=== PATIENT | male | born 1945 | race Caucasian/White ===

== ENCOUNTER 2016-05-28 23:27 | Emergency (ER) | payer BC, OTHER ==
[~2016-05-28] VITALS: Ht 165.1 cm; Wt 79.4 kg
[2016-05-28 23:43] VITALS: BP 105/57; PULSE 76; RESP 18; TEMP 97.5; O2SAT 98
--- NOTE | 2016-05-28 23:43 | NUR ---
Patient placed in waiting room, vital signs stable, EKG complete and given to MD. Md cleared patient to wait in waiting room. No acute distress noted. Daughter with patient. Will continue to monitor.
--- NOTE | 2016-05-29 00:45 | NUR ---
Patient verbalizing that he wants to leave and go home. Patient and daughter educated and advised on danger of leaving without a medical screeing exam by MD. MD aware, Left without being seen reported to charge nurse.
--- NOTE | 2016-05-29 00:55 | NUR ---
Patient name called for re-assessment. No answer.
--- NOTE | 2016-05-29 01:00 | NUR ---
Patient unable to be found in waiting room or waiting room bathroom. Unable to re-assess patient, patient left without being seen.
== END 2016-05-29 01:00 | disposition left against medical advice (07) ==
LOC: SED 23:27
DX: R07.9 Chest pain, unspecified (principal); Z53.21 Procedure and treatment not carried out due to patient leaving prior to being seen by health care provider
CPT/HCPCS: 93005

== ENCOUNTER 2016-11-18 15:19 | Emergency (ER) | payer BC ==
[~2016-11-18] VITALS: Ht 175.3 cm; Wt 81.6 kg
[2016-11-18 15:24] VITALS: BP_SYST 106
[2016-11-18 16:59] LABS: ALANINE AMINOTRANSFERASE 22 U/L (12-78); ALBUMIN 3.5 g/dL (3.4-4.8); ANION GAP 5 (5-15); ASPARTATE AMINOTRANSFERASE 16 U/L (10-37); CALCIUM 8.8 mg/dL (8.4-11.0); CHLORIDE 106 mmol/L (98-107); CREATININE 2.15 mg/dL (0.55-1.30); GLUCOSE 77 mg/dL (70-99); POTASSIUM 4.5 mmol/L (3.5-5.1); SODIUM SERUM 139 mmol/L (136-145); TOTAL BILIRUBIN 0.4 mg/dL (0.0-1.0); UREA NITROGEN, BLOOD 26 mg/dL (8-21); URIC ACID 10.7 mg/dL (2.4-7.0)
[2016-11-18 17:11] LABS: BASOPHILS % (AUTO) 0.4 % (0.0-2.0); EOSINOPHILS # (AUTO) 0.1 K/uL (0.0-0.4); EOSINOPHILS % (AUTO) 1.6 % (0.0-4.0); HEMATOCRIT 50.6 % (36-54); HEMOGLOBIN 15.9 g/dL (14.0-18.0); LYMPHOCYTES # (AUTO) 1.6 K/uL (1.0-5.5); LYMPHOCYTES % (AUTO) 21.3 % (20.5-51.5); MEAN CORPUSCULAR HEMOGLOBIN 27 pg (27-31); MEAN CORPUSCULAR HGB CONC 31 % (32-36); MEAN CORPUSCULAR VOLUME 87 fL (79.0-98.0); MONOCYTES # (AUTO) 0.8 K/uL (0.0-1.0); MONOCYTES % (AUTO) 10.8 % (1.7-9.3); NEUTROPHILS # (AUTO) 4.8 K/uL (1.8-7.7); NEUTROPHILS % (AUTO) 65.9 % (40.0-70.0); PLATELET COUNT (AUTO) 145 K/uL (130-430); RED BLOOD CELL COUNT(AUTO) 5.85 MIL/uL (4.2-6.2); RED CELL DISTRIBUTION WIDTH 17.1 % (9.0-15.0); WHITE BLOOD COUNT (AUTO) 7.3 K/uL (4.8-10.8)
[2016-11-18 17:24] LABS: PROTHROMBIN TIME 10.8 SECS (9.5-12.5)
[2016-11-18 17:58] VITALS: BP_SYST 110
== END 2016-11-18 17:58 | disposition home or self-care (01) ==
LOC: SED 15:19
DX: M10.9 Gout, unspecified (principal); I10 Essential (primary) hypertension; E78.00 Pure hypercholesterolemia, unspecified; Z85.820 Personal history of malignant melanoma of skin
CPT/HCPCS: 36415; 80053; 84550-TC; 85025; 85610-TC; 85730-TC; 99285

== ENCOUNTER 2022-04-14 11:30 | Emergency (ER) | payer BC ==
[~2022-04-14] VITALS: Ht 165.1 cm; Wt 63.5 kg
[2022-04-14 11:31] VITALS: BP_SYST 154
--- NOTE | 2022-04-14 11:35 | NUR ---
Patient to ER bed 04 to gown for evaluation. Side rails up.
--- NOTE | 2022-04-14 11:35 | NUR ---
Seema gregg in [facility] - 04/14/22 at 1203 by [email or web address] Placed in room 02 . Placed on groundwater monitoring technician, blood pressure machine and pulse oximeter. To gown for exam. Side rails up.
--- NOTE | 2022-04-14 11:40 | NUR ---
Note marysol in EDM - 04/14/22 at 1203 by [email or web address] Pt brought by self, A&Ox4, pt presents to ER with chest pain 5/10 x 3 days, skin pink and warm, cap refill <3, VSS, respirations even and unlabored, will cont to monitor
--- NOTE | 2022-04-14 11:40 | NUR ---
Pt brought by self, A&Ox4, pt presents to ER with SOB, Hx of COPD, O2 88%, pt on 2L NC, denies chest pain , skin pink and warm, cap refill <3.
[2022-04-14] MEDS ORDERED: IPRATROPIUM BROM 0.5 MG/2.5 ML VIAL.NEB (ATROVENT) INH ONE (11:45)
[2022-04-14] MEDS ORDERED: ALBUTEROL SULFATE 0.083% 2.5 MG/3 ML VIAL.NEB INH ONE (11:45)
--- NOTE | 2022-04-14 12:00 | NUR ---
Assist primary nurse. Noted bilateral lower extremity swelling, pt complains of pain to lumbar region 11/25.notified MD Tsang.
--- NOTE | 2022-04-14 12:05 | NUR ---
# 20 gauge angiocath placed to left ac. Use of asceptic technique. Opsite placed over site. Blood return noted. Blood for lab drawn from site. Flushed with 10 cc of normal saline. No evidence of infiltration noted. Patient tolerated well.
--- NOTE | 2022-04-14 12:23 | NUR ---
COVID AND FLU OBTAINED AND SENT TO LAB
[2022-04-14 12:27] LABS: BASOPHILS % (AUTO) 0.6 % (0.0-2.0); EOSINOPHILS % (AUTO) 0.5 % (0.0-4.0); HEMATOCRIT 40.3 % (36-54); HEMOGLOBIN 13.3 g/dL (14.0-18.0); LYMPHOCYTES # (AUTO) 0.7 K/uL (1.0-5.5); LYMPHOCYTES % (AUTO) 10.7 % (20.5-51.5); MEAN CORPUSCULAR HEMOGLOBIN 31 pg (27-31); MEAN CORPUSCULAR HGB CONC 33 % (32-36); MEAN CORPUSCULAR VOLUME 94 fL (79.0-98.0); MONOCYTES # (AUTO) 0.5 K/uL (0.0-1.0); MONOCYTES % (AUTO) 7.8 % (1.7-9.3); NEUTROPHILS # (AUTO) 5.2 K/uL (1.8-7.7); NEUTROPHILS % (AUTO) 80.4 % (40.0-70.0); PLATELET COUNT (AUTO) 105 K/uL (130-430); RED BLOOD CELL COUNT(AUTO) 4.29 MIL/uL (4.2-6.2); RED CELL DISTRIBUTION WIDTH 14.1 % (9.0-15.0); WHITE BLOOD COUNT (AUTO) 6.5 K/uL (4.8-10.8)
[2022-04-14] MEDS ORDERED: SIMV-43 PO (12:34)
[2022-04-14] MEDS ORDERED: FINA5TAB11 PO (12:34)
[2022-04-14] MEDS ORDERED: PANT40TA45 PO (12:34)
[2022-04-14] MEDS ORDERED: TAMS-11 PO (12:34)
[2022-04-14] MEDS ORDERED: iohexoL 350 mgI/mL, 100 ML INFUS..BTL IV ONE (12:37)
[2022-04-14] MEDS ORDERED: AMLO2.5T50 PO (12:39)
[2022-04-14] MEDS ORDERED: GABA-529 PO (12:39)
[2022-04-14] MEDS ORDERED: LISI10TA PO (12:39)
[2022-04-14] MEDS ORDERED: TRAZ50TA54 PO (12:39)
[2022-04-14] MEDS ORDERED: PERC10 PO (12:39)
--- NOTE | 2022-04-14 12:39 | NUR ---
Medication reconciled per patient note of medication record.
[2022-04-14 12:45] LABS: ANION GAP 10 (5-15); CALCIUM 9.3 mg/dL (8.4-11.0); CHLORIDE 107 mmol/L (98-107); CREATININE 5.31 mg/dL (0.55-1.30); GLUCOSE 104 mg/dL (70-99); UREA NITROGEN, BLOOD 55 mg/dL (8-21)
--- NOTE | 2022-04-14 12:58 | NUR ---
Pt off the unit for CTA
[2022-04-14 13:04] LABS: ALANINE AMINOTRANSFERASE 22 U/L (12-78); ALBUMIN 3.3 g/dL (3.4-4.8); ASPARTATE AMINOTRANSFERASE 18 U/L (10-37); TOTAL BILIRUBIN 0.5 mg/dL (0.0-1.0)
--- NOTE | 2022-04-14 14:27 | NUR ---
Patient does not wish to proceed with medical care recommended by Dr Tsang . Patient given information related to possible complications, up to and including , which could occur as a result of leaving hospital at this time. Patient verbalizes understanding of risks involved leaving against medical advice. Patient has signed AMA form.
[2022-04-14 14:29] VITALS: BP_SYST 137
== END 2022-04-14 14:27 | disposition left against medical advice (07) ==
LOC: SED 11:30
DX: I11.0 Hypertensive heart disease with heart failure (principal); I50.9 Heart failure, unspecified; R06.02 Shortness of breath; R05.9 Cough, unspecified; Z79.899 Other long term (current) drug therapy; Z20.822 Contact with and (suspected) exposure to COVID-19
CPT/HCPCS: 80053; 83880; 85025; 84484; 36415; 93005; 71045; 71275; 76376; 94640; 99285; 83605; 87804 ×2; 87426; Q9967; J7613